=== PATIENT | female | born 2000 | race Caucasian/White ===

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

== ENCOUNTER → 2020-03-23 | Outpatient (CLI) | payer BC | LOC: COL.LAB 09:15 | DX: Z20.828 Contact with and (suspected) exposure to other viral communicable diseases (principal) ==

== ENCOUNTER 2024-07-17 03:35 | Emergency (ER) | payer OTHER ==
[~2024-07-17] VITALS: Ht 175.3 cm; Wt 72.7 kg
[2024-07-17 03:41] VITALS: TEMP 97.9
[2024-07-17] MEDS ORDERED: LORazepam 2 MG/ML 1 ML VIAL IV ONE (04:00)
[2024-07-17] MEDS ORDERED: NS 1,000 ML IV ONE ×2 (04:00→05:15)
[2024-07-17] MEDS ORDERED: Ondansetron 4 MG/2 ML VIAL IV ONE (04:00)
[2024-07-17 04:02] LABS: BASO % 0.2 % (0.0-2.0); EOS % 0.2 % (0.0-4.0); GRAN # 2.4 K/mm3 (1.4-6.5); GRAN % 36.9 % (42.2-75.2); HEMOGLOBIN 12.4 g/dl (12.5-16.0); LYMPH # 3.6 K/mm3 (1.2-3.4); LYMPH % 54.7 % (20.0-51.0); MEAN CELL VOLUME 85 fl (80.0-100.0); MEAN CORPUSCULAR HEMOGLOBIN 29 pg (27-31); MEAN CORPUSCULAR HGB CONC 35 g/dl (33.0-37.0); MEAN PLATELET VOLUME 8.7 fl (7.4-10.4); MONO # 0.5 K/mm3 (0.1-0.6); MONO % 7.8 % (1.7-9.3); PLATELET COUNT 324 K/mm3 (130-400); RED BLOOD COUNT 4.22 M/mm3 (4.10-5.30); REDCELL DISTRIBUTION WIDTH-CV 12.5 % (11.5-14.5)
[2024-07-17 04:04] LABS: HEMATOCRIT 35.7 % (37.0-47.0)
[2024-07-17 04:17] LABS: ALBUMIN 4.7 g/dL (3.5-5.0); BILIRUBIN,TOTAL 0.2 mg/dL (0.2-1.2); CALCIUM 9.1 mg/dL (8.4-10.2); MAGNESIUM 2.1 mg/dL (1.6-2.6); POTASSIUM 3.6 mEq/L (3.5-4.5); TOTAL PROTEIN 7.9 g/dl (6.2-8.1)
[2024-07-17 04:28] LABS: CREATININE, serum 0.82 mg/dL (0.57-1.11)
[2024-07-17 05:55] VITALS: BP 106/66; PULSE 85
== END 2024-07-17 06:00 | disposition home or self-care (01) ==
LOC: COL.ER 03:35
PROVIDERS: Emergency Medicine
DX: F10.129 Alcohol abuse with intoxication, unspecified (principal); Y90.8 Blood alcohol level of 240 mg/100 ml or more; F32.A Depression, unspecified; Z79.899 Other long term (current) drug therapy
CPT/HCPCS: J2060; J2405; J7030